=== PATIENT | male | born 1960 | race Caucasian/White ===

== ENCOUNTER 2017-04-21 15:18 | Emergency (ER) | payer OTHER ==
[~2017-04-21] VITALS: Ht 172.7 cm; Wt 78.1 kg
[~2017-04-21 15:18] MED LIST: ALL300 PO; CALC500C70 PO; TAPE1TAB10 PO; TNR50 PO; TRAM-10 PO; TRIA75TA53 PO; ZLF/50 PO
[2017-04-21 15:21] VITALS: Ht 172.7 cm; Wt 78.1 kg
[2017-04-21] MEDS ORDERED: FOLI1TAB7 PO (15:51)
--- NOTE | 2017-04-21 16:47 | DIAGNOSTIC IMAGING REPORT ---
LEFT VENOUS DOPP LOWER EXT UNILAT CLINICAL HISTORY: L leg pain and swelling; Hx LLE DVT pain. Edema. TECHNIQUE: Venous Doppler COMPARISON STUDY: None FINDINGS: Findings consistent with superficial thrombophlebitis involving a component of the distal greater saphenous vein. All deep venous structures are unremarkable. Compressibility and augmentation characteristics are unremarkable. IMPRESSION: 1. Focal superficial thrombophlebitis greater saphenous vein distally. 2. No evidence of deep venous thrombosis. The above report was generated using voice recognition software. It may contain grammatical, syntax or spelling errors. Electronically signed by: Kristian Huffman M.D. 04/21/2017 4:45 PM Dictated Date/Time: 04/21/2017 4:44 PM
[2017-04-21] MEDS ORDERED: HYDR-5688 PO (17:37)
--- NOTE | 2017-04-21 17:45 | DIAGNOSTIC IMAGING REPORT ---
RIGHT ANKLE MIN 3 VIEWS ROUTINE CLINICAL HISTORY: same Right trauma COMPARISON: None. DISCUSSION: Oblique fracture distal fibula. Moderate degenerative change of the ankle. Subtalar joint is intact. Findings consistent with old healed fractures of the tibia as well as fibula. There is no evidence for soft tissue swelling. IMPRESSION: Oblique fracture distal fibula. The above report was generated using voice recognition software. It may contain grammatical, syntax or spelling errors. Electronically signed by: Kristian Huffman M.D. 04/21/2017 5:43 PM Dictated Date/Time: 04/21/2017 5:43 PM
--- NOTE | 2017-04-21 17:47 | DIAGNOSTIC IMAGING REPORT ---
RIGHT FOOT MIN 3 VIEWS ROUTINE CLINICAL HISTORY: fall time 1 wk; R ankle and foot pain Right trauma. Pain. COMPARISON: None. DISCUSSION: The bones and joint spaces appear intact. There is no evidence of fracture, dislocation or bony disease. There is no evidence for soft tissue swelling. Oblique fracture distal fibula IMPRESSION: Oblique fracture distal fibula. No acute process of the foot identified. The above report was generated using voice recognition software. It may contain grammatical, syntax or spelling errors. Electronically signed by: Kristian Huffman M.D. 04/21/2017 5:45 PM Dictated Date/Time: 04/21/2017 5:44 PM
[2017-04-21 18:01] VITALS: BP 120/74; PULSE 92; TEMP 36.4; O2SAT 96
--- NOTE | 2017-04-22 10:38 | EMERGENCY ROOM VISIT NOTE ---
ED Visit Note First contact with patient: 15:25 Chief Complaint: I hurt my right ankle and now my left leg is hurting also. History of Present Illness: Mr. Jones is a 57-year-old white male who ambulates into the ED on crutches complaining of right ankle pain and left medial lower leg and thigh pain. Historically patient reports he has a history of a DVT in the left lower leg and neuropathy of the lower legs. Patient reports approximately one week ago he was running, tripped and fell and injured his right ankle. He reports since that time he has been having severe pain over the lateral aspect of the ankle. Currently he describes this pain as a sharp sensation. He rates his discomfort 5/10. His pain is nonradiating. His pain worsens with palpation, inversion, plantar flexion, weightbearing and ambulation. He has not identified any alleviating factors related to the pain. He has not taken any medications for pain prior to arrival at the hospital. Patient reports he has neuropathy in his legs and he is having numbness in his feet which is normal but has not increased in intensity. Patient reports because of the severity of his pain throughout the week he was not able to get up off the couch except to go to bed and has been lying around all week. He goes on to report approximately 3 days ago he started experiencing pain initially over the medial aspect of the ankle than into the medial aspect of the calf and now the medial aspect of the thigh. He describes this as a mild burning discomfort; he does report this was a similar discomfort from his previous DVT. He rates this discomfort 3/10. His pain worsens with palpation. He has not identified any alleviating factors related to the pain. Once again he has not taken any medications for pain prior to arrival at the hospital. He denies any associated symptoms with this pain including fevers, chills, sweats, skin eruptions, skin color changes, extremity weakness, worsening neuropathy, difficulty weightbearing, chest pain, shortness of breath , palpitations. Review of Systems: As noted above in history of present illness. 8 body systems were reviewed and found to be negative as noted above. Past Medical History: As previously noted, hypertension and status post cholecystectomy. Current Medications: Atenolol, Sertraline, Allopurinol, Maxzide, Os-Eb, Nucynta , Folvite. Allergies to Medications: Amitriptyline, cephalosporins, indomethacin, NSAIDs, meloxicam, sulindac. Social History: Patient is not employed; he feels safe in his home environment; he denies tobacco use; he admits to alcohol use. Physical Examination: Vital Signs: Date Time Temp Pulse Resp B/P (MAP) Pulse Ox O2 Delivery O2 Flow Rate FiO2 04/21/17 18:01 36.4 92 18 120/74 96 04/21/17 15:21 36.4 115 18 124/68 97 GENERAL: 57-year-old male in mild to moderate distress due to pain, nontoxic- appearing, afebrile and hemodynamically stable. NEUROLOGICAL: Awake, alert and oriented to person, place and time. Answering questions appropriately and following commands. SKIN: Warm, dry and pink. HEENT: Atraumatic and normocephalic. THORAX: Lungs sounds are clear to auscultation and equal bilaterally with symmetrical chest wall. HEART: Regular rate and rhythm. No gallops, rubs or murmurs are appreciated. ABDOMEN: Flat, soft and nontender. Positive bowel sounds in all quadrants. RIGHT LOWER EXTREMITY: No gross bony deformity. No tenderness in the hip, thigh , knee or proximal lower leg. Moderate tenderness over the distal fibula just superior to the malleolus with bony crepitus and moderate swelling. Tenderness throughout the entire ligamentous structures of the lateral ankle. There is moderate swelling in that position that extends down into the lateral aspect of the foot with bruising. No tenderness over the calcaneus, metatarsals or Achilles tendon. He was able to wiggle his toes. His sensation is questionable due to his neuropathy. Distal pulses were intact. Capillary refill is brisk. LEFT LOWER EXTREMITY: No gross bony deformity. No shortening or malrotation. Mild tenderness over the lateral aspect of the thigh with minimal swelling but no erythema or cellulitis. Slightly prominent superficial veins in this area. No tenderness throughout the knee. No ligamentous laxity of the knee. Negative effusion test. Negative patellar apprehension test. Mild tenderness over the medial calf without swelling, erythema or any cyanotic-appearing skin. No palpable cords. No tenderness through the ankle or foot. Capillary refill is brisk. Distal pulses are present. Sensation is questionable due to neuropathy. ED Course: Patient is assessed as noted above. Patient's medication list was reviewed. Right Ankle X-Rays: Were read by myself and the radiologist shows an oblique fracture through the distal fibula and findings consistent with an healing fracture of the distal fibula and tablet above this fracture site. Radiologist also notes moderate degenerative changes throughout the ankle. Right Foot X-Rays: Were read by myself and the radiologist showing the oblique fracture of the distal fibula but no other fractures or dislocations throughout the foot. Left lower extremity Venous Doppler Ultrasound: Was reviewed by myself and read by the radiologist showing focal superficial thrombophlebitis in the greater saphenous vein but no evidence of deep vein thrombus. Patient was placed in an Ortho-Glass stirrup splint for his ankle fracture. His crutches were evaluated for proper fit. Patient was educated about today's findings and instructed on his treatment plan ; he verbalizes understanding and agreement with this plan. Clinical Impression: Right distal fibula fracture. Left leg superficial thrombophlebitis. Disposition: Patient discharged home in stable condition accompanied by female friends; prior to departure he was reassessed and subjectively reported he was feeling the same but rated his ankle pain 8/10. Plan: For his ankle pain comfort measures were discussed including rest, ice, splint and crutch use and a sliding pain medication scale of acetaminophen and [place]; he was given appropriate narcotic precautions and his name was checked on the state database and no red flags were noted. For his superficial thrombophlebitis he reports she is allergic to all NSAIDs so I recommend warm compresses. Patient was was encouraged to [facility] and his family physician for his superficial thrombophlebitis. Patient was encouraged return ED for worsening/uncontrolled pain, uncontrolled swelling, worsening neuropathy symptoms or any new/concerning symptoms.
== END 2017-04-21 18:02 | disposition home or self-care (01) ==
LOC: C.EDB 15:19 → C.EDD 18:02
DX: S82.434A Nondisplaced oblique fracture of shaft of right fibula, initial encounter for closed fracture (principal); W01.0XXA Fall on same level from slipping, tripping and stumbling without subsequent striking against object, initial encounter; Y92.9 Unspecified place or not applicable; I80.02 Phlebitis and thrombophlebitis of superficial vessels of left lower extremity; Z86.718 Personal history of other venous thrombosis and embolism; I10 Essential (primary) hypertension; Z79.899 Other long term (current) drug therapy